=== PATIENT | female | born 1945 | race Caucasian/White ===

== ENCOUNTER 2024-03-20 15:37 | Observation (INO) | payer MEDICARE ==
--- NOTE | 2024-03-20 16:13 | ED ---
Neuro HPI - General Chief Complaint: Neuro Symptoms/Deficit Stated Complaint: Numbness Time Seen by Provider: 03/20/24 15:49 Source: patient, EMS, RN notes reviewed, old records reviewed Mode of arrival: EMS Limitations: no limitations - History of Present Illness Is the patient presenting with stroke symptoms?: No -: hour(s) Initial Comments: This is a 78-year-old female accepted in transfer for possibility of CVA patient's neurosymptoms are completely resolved and they resolved and route, patient has no history of prior CVA or heart disease. Location: speech (Patient with numbness lip numbness), dysarthria Place: home Improves With: time On Anticoagulants: No Associated Symptoms: denies other symptoms Treatments Prior to Arrival: none - Related Data Allergies/Adverse Reactions: Allergies Allergy/AdvReac Type Severity Reaction Status Date / Time adhesive tape AdvReac Rash/Hives Verified 03/20/24 16:01 erythromycin base AdvReac Rash/Hives Verified 03/20/24 16:01 naproxen AdvReac Rash/Hives Verified 03/20/24 16:01 nystatin AdvReac Rash/Hives Verified 03/20/24 16:01 zolpidem [From Ambien] AdvReac Rash/Hives Verified 03/20/24 16:01 Review of Systems ROS Statement: Those systems with pertinent positive or pertinent negative responses have been documented in the HPI. ROS Other: All systems not noted in ROS Statement are negative. General Exam Limitations: no limitations General appearance: alert, in no apparent distress Head exam: Present: atraumatic, normocephalic, normal inspection Eye exam: Present: normal appearance, PERRL, EOMI. Absent: scleral icterus, conjunctival injection, periorbital swelling ENT exam: Present: normal exam, mucous membranes moist Neck exam: Present: normal inspection. Absent: tenderness, meningismus, lymphadenopathy Respiratory exam: Present: normal lung sounds bilaterally. Absent: respiratory distress, wheezes, rales, rhonchi, stridor Cardiovascular Exam: Present: regular rate, normal rhythm, normal heart sounds. Absent: systolic murmur, diastolic murmur, rubs, gallop, clicks GI/Abdominal exam: Present: soft, normal bowel sounds. Absent: distended, tenderness, guarding, rebound, rigid Extremities exam: Present: normal inspection, full ROM, normal capillary refill. Absent: tenderness, pedal edema, joint swelling, calf tenderness Back exam: Present: normal inspection Neurological exam: Present: alert, oriented X3, CN II-XII intact Psychiatric exam: Present: normal affect, normal mood Skin exam: Present: warm, dry, intact, normal color. Absent: rash Stroke MDM - NIH Stroke Scale 1a. Level of Consciousness: (0) alert 1b. LOC Questions: (0) answers correctly 1c. LOC Commands: (0) performs tasks correctly 2. Best Gaze: (0) normal 3. Visual: (0) no visual loss 5a. Motor Arm Left: (0) no drift 5b. Motor Arm Right: (0) no drift 6a. Motor Leg Left: (0) no drift 6b. Motor Leg Right: (0) no drift 7. Limb Ataxia: (0) absent 8. Sensory: (0) normal 9. Best Language: (0) no aphasia 10. Dysarthria: (0) normal 11. Extinction/Inattention: (0) no abnormality - Medical Decision Making 78 female to ER with TIA as neuro symptoms are all resolved. Patient will admit for further neurologic evaluation - Radiology Data Radiology results: report reviewed (CT brain CT angio head neck negative for acute disease this is report from outside hospital), image reviewed - EKG Data -: EKG Interpreted by Me Past Medical History Past Medical History: Asthma History of Any Multi-Drug Resistant Organisms: None Reported Past Surgical History: Section Past Psychological History: No Psychological Hx Reported Smoking Status: Never smoker Past Alcohol Use History: None Reported Past Drug Use History: None Reported Course Vital Signs 03/20/24 15:54 Pulse Rate 78 Respiratory 18 Rate Blood Pressure 189/85 O2 Sat by Pulse 95 Oximetry - Reevaluation(s) Reevaluation #1: 03/20/24 16:11 Records reviewed Reevaluation #2: 03/20/24 16:11 Patient symptoms unchanged, remain resolved and states they have been improving during transfer Reevaluation #3: 03/20/24 16:12 Patient informed of results, questions answered, blood pressure remains elevated Reevaluation #4: Was pt. sent in by a medical professional or institution (, PA, BARBER, urgent care, hospital, or custodial...) When possible be specific @ -no Did you speak to anyone other than the patient for history (EMS, parent, family, police, friend...)? What history was obtained from this source @ -no Did you review nursing and triage notes (agree or disagree)? Why? @ -agree Are old charts reviewed (outside hosp., previous admission, EMS record, old EKG, old radiological studies, urgent care reports/EKG's, custodial records)? Report findings @ -yes Differential Diagnosis (chest pain, altered mental status, abdominal pain women, abdominal pain men, vaginal bleeding, weakness, fever, dyspnea, syncope, headache, dizziness, GI bleed, back pain, seizure, CVA, palpatations, mental health, musculoskeletal)? @ -prior EKG interpreted by me (3pts min.). @ -yes X-rays interpreted by me (1pt min.). @ -yes negative for acute disease CT interpreted by me (1pt min.). @ -no U/S interpreted by me (1pt. min.). @ -no What testing was considered but not performed or refused? (CT, X-rays, U/S, labs)? Why? @ -none What meds were considered but not given or refused? Why? @ -none Did you discuss the management of the patient with other professionals (professionals i.e. , PA, BARBER, lab, RT, psych nurse, social work nurse, pipe stress engineer, teacher, motorized squad commanding officer, nurse case manager)? Give summary @ -no Was smoking cessation discussed for >3mins.? @ -no Was critical care preformed (if so, how long)? @ -no Were there social determinants of health that impacted care today? How? (Homelessness, low income, unemployed, alcoholism, drug addiction, transportation, low edu. Level, literacy, decrease access to med. care, fpc, rehab)? @ -none Was there de-escalation of care discussed even if they declined (Discuss DNR or withdrawal of care, Hospice)? DNR status @ -no What co-morbidities impacted this encounter? (DM, HTN, Smoking, COPD, CAD, Cancer, CVA, ARF, Chemo, Hep., AIDS, mental health diagnosis, sleep apnea, morbid obesity)? @ -none Was patient admitted / discharged? Hospital course, mention meds given and route, prescriptions, significant lab abnormalities, going to OR and other pertinent info. @ - Undiagnosed new problem with uncertain prognosis? @ -no Drug Therapy requiring intensive monitoring for toxicity (Heparin, Nitro, Insulin, Cardizem)? @ -no Were any procedures done? @ -no Diagnosis/symptom? @ - Acute, or Chronic, or Acute on Chronic? @ -Acute Uncomplicated (without systemic symptoms) or Complicated (systemic symptoms)? @ -Complicated Side effects of treatment? @ -no Exacerbation, Progression, or Severe Exacerbation? @ -exacerbation Poses a threat to life or bodily function? How? (Chest pain, [place], [place], pneumonia, PE, COPD, DKA, ARF, appy, cholecystitis, CVA, Diverticulitis, Homicidal, Suicidal, threat to staff... and all critical care pts) @ -yes Reevaluation #5: Differential CVA Ischemic stroke, hemorrhagic stroke, brain tumor, atypical migraine, Wernicke's encephalopathy, seizure, multiple sclerosis, meningitis, encephalitis, hypoglycemia, Guillain-Bello, electrolytes disturbance, myasthenia gravis.... This is not meant to be an all-inclusive list - Consultations Consultation #1: With [facility] who agrees to admit this patient Disposition Clinical Impression: Transient cerebral ischemia Disposition: ADMITTED IP TO THIS HOSP Condition: Good Is patient prescribed a controlled substance at d/c from ED?: No Referrals: Jessica Medley DO [Primary Care Provider] - 1-2 days Time of Disposition: 16:00
[2024-03-20] MEDS: ASPIRIN 325 MG TAB PO STA (16:38)
--- NOTE | 2024-03-20 19:38 | US ---
EXAMINATION TYPE: US carotid duplex BILAT DATE OF EXAM: 03/20/2024 COMPARISON: NONE CLINICAL INDICATION: Female, 78 years old with history of Stenosis; Pt states let side tingling/numbn ess TECHNIQUE: Carotid duplex ultrasound examination. Indirect Doppler criteria was utilized. FINDINGS: EXAM MEASUREMENTS: RIGHT: Peak Systolic Velocity (PSV) cm/sec ----- Right CCA: 95.5 ----- Right ICA: 90.1 ----- Right ECA: 141 ICA/CCA ratio: 0.9 RIGHT: End Diastole cm/sec ----- Right CCA: 13.6 ----- Right ICA: 17.6 ----- Right ECA: 7.4 LEFT: Peak Systolic Velocity (PSV) cm/sec ----- Left CCA: 110 ----- Left ICA: 99.3 ----- Left ECA: 143 ICA/CCA ratio: 0.9 LEFT: End Diastole cm/sec ----- Left CCA: 16.1 ----- Left ICA: 20.1 ----- Left ECA: 6.6 VERTEBRALS (direction of flow): Right Vertebral: Antegrade Left Vertebral: Antegrade Rhythm: Normal [employer] NOTES: No significant stenosis seen IMPRESSION: Less than 50% stenosis of the bilateral carotid bifurcations. Criteria for Assigning % of Stenosis / Diameter reduction (Estimation based on the indirect measurements of the internal carotid artery velocities (ICA PSV). 1. Normal (no stenosis)=ICA PSV < 125 cm/s: ratio < 2.0: ICA EDV<40 cm/s. 2. Less than 50% stenosis=ICA PSV < 125 cm/s: ratio < 2.0: ICA EDV<40 cm/s. 3. 50 to 69% stenosis=ICA PSV of 125 to 230 cm/s: ration 2.0 ? 4.0: ICA EDV 40-100 cm/s. 4. Greater than 70% stenosis to near occlusion= ICA PSV > 230 cm/s: ratio > 4.0: ICA EDV > 100 cm/s. 5. Near occlusion= ICA PSV velocities may be low or undetectable: variable ratio and ICA EDV. 6. Total occlusion=unable to detect flow.
[2024-03-20] MEDS: ATORVASTATIN 80 MG TAB PO SCH (19:45)
[2024-03-20] MEDS: MELATONIN 5 MG TABLET PO PRN (22:36)
[2024-03-21] MEDS ORDERED: ARTIFICIAL TEARS-HYPROMELLOSE DROPS 15 ML BTL BOTH EYES PRN (09:24)
[2024-03-21] MEDS ORDERED: hydrALAZINE HCL 20 MG/ML 1 ML VIAL IVP PRN (09:26)
[2024-03-21] MEDS: ASPIRIN 325 MG TAB PO SCH (09:45)
[2024-03-21] MEDS: LORATADINE 10 MG TAB PO SCH (09:45)
[2024-03-21] MEDS: CHOLECALCIFEROL 125 MCG (5000 IU) TABLET PO SCH (09:45)
[2024-03-21 10:26] LABS: Chol/HDL Ratio 1.86 Ratio; LDL Cholesterol,Calculated 62.6 mg/dL (0.0-131.0); VLDL Calculation 16.88 mg/dL (5.00-40.00)
[2024-03-21] MEDS: ACETAMINOPHEN TAB 325 MG TAB PO PRN (10:33)
[2024-03-21] MEDS: FLUTICASONE NASAL 50MCG/SPRAY 16GM BTL EA NOSTRIL SCH (12:33)
[2024-03-21] MEDS: CLOPIDOGREL 75 MG TAB PO SCH (12:33)
--- NOTE | 2024-03-21 12:35 | P.CNNES ---
History of Present Illness Consult date: 03/21/24 Requesting physician: Aj Josue Reason for Consult: cva History of Present Illness: This is a 78-year-old woman who presented emergency department because of paresthesia over the left side of the lip mouth and left upper extremity. Patient stated that she woke up yesterday at 5:30 AM and was doing well and around 815 around that time she noticed that she is having paresthesia over the left upper lip left side of the tongue and left upper extremity. She feels her symptoms is improving but continues to have intermittent paresthesia of the left upper lip and continues to have paresthesia of the left tongue. Denies any weakness. She has chronic neck pain but denies any association of any numbness or tingling. Denies any history of stroke. Denies any high blood pressure but stated yesterday when her blood pressure was checked her blood pressure was elevated. Denies history of diabetes. She is not on any antiplatelet. Patient was taken to [facility] in which she had CT of the head is reported as mild small vessel disease. No evidence of acute intracranial process. She also had CT angiography of the head which is reported as no large vessel occlusion. No significant aneurysm. Dense atherosclerotic calcification in the vertebral artery causing more than 50% stenosis on the right side. Initial NIH stroke scale at the outside hospital was 0. Reviewed thrombolytic since outside hospital since NIH stroke scale was 0. Result the patient was transferred to our facility for further evaluation. The daughter is at bedside and she stated that patient is going under a lot of things recently dealing with her 's health issues recent mother's and her dealing with the Will. Some of the work-up during our facility consisted of: Lipid panel is triglyceride 84, cholesterol is 172, LDL 62 HDL is 92. Review of Systems The positive and negative as per HPI. Past Medical History Past Medical History: Asthma History of Any Multi-Drug Resistant Organisms: None Reported Past Surgical History: Section Past Psychological History: No Psychological Hx Reported Smoking Status: Never smoker Past Alcohol Use History: None Reported Past Drug Use History: None Reported Medications and Allergies Home Medications Medication Instructions Recorded Confirmed Type Ascorbic Acid [Vitamin C] 1,000 mg PO DAILY 03/20/24 03/20/24 History Budesonide/Formoterol Fumarate 2 puff INHALATION RT-BID 03/20/24 03/20/24 History [Symbicort 160-4.5 Mcg Inhaler] Cetirizine HCl [Zyrtec] 10 mg PO DAILY 03/20/24 03/20/24 History Cholecalciferol [Vitamin D3 (125 125 mcg PO DAILY 03/20/24 03/20/24 History Mcg = 5000 Iu)] Fluticasone Nasal [place] [Flonase 1 spray EA NOSTRIL BID 03/20/24 03/20/24 H istory Nasal [place]] Methylsulfonylmethane [MSM] 1,000 mg PO DAILY 03/20/24 03/20/24 History Montelukast [Singulair] 10 mg PO HS 03/20/24 03/20/24 History Prednisolone Acetate/Pf 1 drop BOTH EYES DAILY 03/20/24 03/20/24 History [Prednisolone Acet 1% Eye Drop] Systane Ultra Preservative Free 1 drop BOTH EYES QID PRN 03/20/24 03/20/24 History Zinc Gluconate [Zinc] 50 mg PO DAILY 03/20/24 03/20/24 History Allergies Allergy/AdvReac Type Severity Reaction Status Date / Time adhesive tape Allergy Rash/Hives Verified 03/20/24 16:36 erythromycin base Allergy Rash/Hives Verified 03/20/24 16:36 naproxen Allergy Rash/Hives Verified 03/20/24 16:36 nystatin Allergy Rash/Hives Verified 03/20/24 16:36 zolpidem [From Ambien] Allergy Rash/Hives Verified 03/20/24 16:36 Physical Examination - Vital Signs Vital Signs: Vital Signs Temp Pulse Pulse Resp BP BP Pulse Ox 03/21/24 09:26 95 03/21/24 08:00 16 03/21/24 07:00 97.5 F L 73 173/83 95 03/21/24 02:32 98.5 F 60 16 133/69 97 03/20/24 21:17 98.8 F 93 16 144/83 94 L 03/20/24 16:57 18 168/82 98 03/20/24 15:54 98.6 F 78 18 189/85 95 FiO2 03/21/24 09:26 21 03/21/24 08:00 03/21/24 07:00 03/21/24 02:32 03/20/24 21:17 03/20/24 16:57 03/20/24 15:54 Intake and Output 03/20/24 03/21/24 03/21/24 22:59 06:59 14:59 Other: Voiding Method Toilet Toilet Toilet # Voids 1 1 Weight 83.007 kg GENERAL: The patient is lying in bed and is not in acute distress. NEUROLOGICAL: Higher mental function: The patient is awake, alert, oriented to self, place and time. Patient is following commands. No aphasia and no neglect. Cranial nerves: The pupils are round, equal and reactive to light and accommodation. Visual conte are full to confrontation throughout. Extraocular movement is intact no nystagmus is noted. Facial sensation is normal to touch throughout. The facial strength is normal throughout. Hearing is normal bilaterally to hand rub. Tongue is midline and moved [id number] without any difficulty. No dysarthria is noted. Shoulder shrug is normal bilaterally. Motor: The strength is 5 over 5 throughout. Normal tone and bulk. Cerebellum: Normal finger to nose heel to mcmillan bilaterally. Sensation: Sensation is normal to touch throughout. Reflexes (right/left): 2+ throughout Plantars are downgoing bilaterally. Results - Laboratory Findings Abnormal Lab Findings: Abnormal Labs 03/21/24 05:53 HDL Cholesterol 92.50 H Assessment and Plan Assessment: This is a 78-year-old woman who yesterday in the morning she noticed that she had left paresthesia of the left upper lip left side of the mouth and left upper extremity and was evaluated at the outside hospital and had CT of the head which was unremarkable for acute process, CT angiography head reported as no large vessel occlusion. No significant aneurysm. Dense atherosclerotic calcification in the vertebral artery causing more than 50% stenosis on the right side. Her NIH stroke scale is 0 at outside hospital. As result was transferred for further evaluation. Acute left paresthesia involving facial region (upper lip that is intermittent), left lip and upper extremity: Probable acute ischemic stroke. I assume small lacunar stroke over right thalamus region. She is undergoing a lot of stress recently dealing with health issues and recent mother's and dealing with Will but I doubt stress is cause of her symptoms are more due to recent stroke. New onset hypertensive urgency Underlying history of chronic neck pain History of osteoarthritis History of corneal transplant in 2013 and is on prednisone eyedrops Plan: Was given aspirin 325 once in the ED then was started on aspirin 325 daily by the ED physician. I also started the patient on Plavix 75 mg daily. Patient was not on any antiplatelets prior to this. Patient started on Lipitor 80 mg nightly by the ED physician prior to that she was not on any statin. Recommend the LDL level for strokes to be less than 70. I ordered MRI of the brain, carotid duplex 2D echo was ordered and is pending Ordered TSH and HbA1c. Continue to neurochecks Cardiac monitoring PT, OT and PULPING MACHINE OPERATOR are consulted Will defer rest of the medical management the primary team. For DVT prophylaxis I start the patient on subcu heparin 5000 units every 12 hours Discussed with the patient and her family members who are bedside Thank you for the consultation Dr. Henson will resume neurology service tomorrow A.M. Time with Patient: Greater than 30
--- NOTE | 2024-03-21 12:53 | P.HPIM ---
History of Present Illness H&P Date: 03/21/24 History of present illness; patient 78-year-old lady with past medical his significant for COPD who presented as a transfer from [facility] for stroke workup. Patient initially presented to the hospital for left facial numbness and left upper extremity numbness. There was no complaint of slurred speech. Denies any weakness of any extremity. There was no complaint of loss of consciousness. No complaint of chest pain or shortness of breath. Patient had a CT head done which was negative for any acute intracranial process. Patient was transferred to [facility]. REVIEW OF SYSTEMS: CONSTITUTIONAL: No fever, no malaise, no fatigue. HEENT: No recent visual problems or hearing problems. Denied any sore throat. CARDIOVASCULAR: No chest pain, orthopnea, PND, no palpitations, no syncope. PULMONARY: No shortness of breath, no cough, no hemoptysis. GASTROINTESTINAL: No diarrhea, no nausea, no vomiting, no abdominal pain. NEUROLOGICAL: As mentioned above HEMATOLOGICAL: Denies any bleeding or petechiae. GENITOURINARY: Denies any burning micturition, frequency, or urgency. MUSCULOSKELETAL/RHEUMATOLOGICAL: Denies any joint pain, swelling, or any muscle pain. ENDOCRINE: Denies any polyuria or polydipsia. The rest of the 14-point review of systems is negative. PHYSICAL EXAMINATION: GENERAL: The patient is alert and oriented x3, not in any acute distress. Well developed, well nourished. HEENT: Pupils are round and equally reacting to light. EOMI. No scleral icterus. No conjunctival pallor. Normocephalic, atraumatic. No pharyngeal erythema. No thyromegaly. CARDIOVASCULAR: S1 and S2 present. No murmurs, rubs, or gallops. PULMONARY: Chest is clear to auscultation, no wheezing or crackles. ABDOMEN: Soft, nontender, nondistended, normoactive bowel sounds. No palpable organomegaly. MUSCULOSKELETAL: No joint swelling or deformity. EXTREMITIES: No cyanosis, clubbing, or pedal edema. NEUROLOGICAL: Gross neurological examination did not reveal any focal deficits. SKIN: No rashes. Assessment and plan TIA History of COPD Monitor vital signs Monitor CBC Monitor CMP Continue telemetry monitoring Continue neurochecks Results of ultrasound carotids noted Ordered 2D echo Ordered MRI brain As needed IV hydralazine Consult neurology Labs and medication were reviewed.. Continue same treatment. Continue with symptomatic treatment. Resume home medication. Monitor labs and vitals. DVT and GI prophylaxis. Further recommendations as per clinical course of the patient Dictation was produced using [email or web address] dictation software. please excuse any grammatical, word or spelling errors. Past Medical History Past Medical History: Asthma History of Any Multi-Drug Resistant Organisms: None Reported Past Surgical History: Section Past Psychological History: No Psychological Hx Reported Smoking Status: Never smoker Past Alcohol Use History: None Reported Past Drug Use History: None Reported Medications and Allergies Home Medications Medication Instructions Recorded Confirmed Type Ascorbic Acid [Vitamin C] 1,000 mg PO DAILY 03/20/24 03/20/24 History Budesonide/Formoterol Fumarate 2 puff INHALATION RT-BID 03/20/24 03/20/24 History [Symbicort 160-4.5 Mcg Inhaler] Cetirizine HCl [Zyrtec] 10 mg PO DAILY 03/20/24 03/20/24 History Cholecalciferol [Vitamin D3 (125 125 mcg PO DAILY 03/20/24 03/20/24 History Mcg = 5000 Iu)] Fluticasone Nasal [place] [Flonase 1 spray EA NOSTRIL BID 03/20/24 03/20/24 History Nasal [place]] Methylsulfonylmethane [MSM] 1,000 mg PO DAILY 03/20/24 03/20/24 History Montelukast [Singulair] 10 mg PO HS 03/20/24 03/20/24 History Prednisolone Acetate/Pf 1 drop BOTH EYES DAILY 03/20/24 03/20/24 History [Prednisolone Acet 1% Eye Drop] Systane Ultra Preservative Free 1 drop BOTH EYES QID PRN 03/20/24 03/20/24 History Zinc Gluconate [Zinc] 50 mg PO DAILY 03/20/24 03/20/24 History Allergies Allergy/AdvReac Type Severity Reaction Status Date / Time adhesive tape Allergy Rash/Hives Verified 03/20/24 16:36 erythromycin base Allergy Rash/Hives Verified 03/20/24 16:36 naproxen Allergy Rash/Hives Verified 03/20/24 16:36 nystatin Allergy Rash/Hives Verified 03/20/24 16:36 zolpidem [From Ambien] Allergy Rash/Hives Verified 03/20/24 16:36 Physical Exam Vitals: Vital Signs Temp Pulse Pulse Resp BP BP Pulse Ox 03/21/24 07:00 97.5 F L 73 173/83 95 03/21/24 02:32 98.5 F 60 16 133/69 97 03/20/24 21:17 98.8 F 93 16 144/83 94 L 03/20/24 16:57 18 168/82 98 03/20/24 15:54 98.6 F 78 18 189/85 95 Intake and Output 03/20/24 03/21/24 03/21/24 22:59 06:59 14:59 Other: Voiding Method Toilet Toilet # Voids 1 1 Weight 83.007 kg Thrombosis Risk Factor Assmnt - Choose All That Apply Each Risk Factor Represents 3 Points: Age 75 years or older Thrombosis Risk Factor Assessment Total Risk Factor Score: 3 Thrombosis Risk Factor Assessment Level: Moderate Risk
[2024-03-21] MEDS: SYSTANE LUBRICANT EYE DROPS BOTH EYES PRN (20:41)
[2024-03-21] MEDS: MONTELUKAST 10 MG TAB PO SCH (20:41)
[2024-03-21] MEDS: HEPARIN SODIUM,PORCINE 5,000 UNIT/ML 1 ML VIAL SQ SCH (20:41)
[2024-03-21] MEDS: SYMBICORT 160-4.5 MCG INHALER INHALATION SCH (20:55)
[2024-03-22] MEDS: ZINC SULFATE 220 MG CAP PO SCH (09:00)
[2024-03-22] MEDS: METHYLSULFONYLMETHANE 1000 MG PO SCH (09:02)
[2024-03-22] MEDS: PREDNISOLONE ACETATE 1% BOTH EYES SCH (11:19)
[2024-03-22] MEDS: METHYLSULFONYLMETHANE PO SCH ×2 (11:20→11:33)
[2024-03-22] MEDS: prednisoLONE ACETATE 1% OPHTH DROPS 5 ML BTL BOTH EYES SCH (11:33)
--- NOTE | 2024-03-22 15:31 | P.PN ---
Subjective Progress Note Date: 03/22/24 Patient was initially seen by Dr. Miguel Copeland. Please refer to his note for details. Patient is a 78-year-old female with paresthesias with left arm and lip/mouth involvement. Patient was seen for a follow-up. Patient's was also present. Patient has presented with paresthesias over some parts of left side of the body, including left upper and lower lip, dorsum of the left side of the tongue (almost like a straight line), and cold spot involving dorsum of the forearm straight down from elbow to the wrist. Patient states that yesterday it was more tingling but today is more numb. She cannot describe the feeling. Denies any slurred speech or any focal weakness. She denies any diabetes, only has asthma. Objective - Vital Signs Vital signs: Vital Signs Temp 98.1 F 03/22/24 07:00 Pulse 80 03/22/24 07:00 Resp 18 03/22/24 08:32 BP 174/92 03/22/24 07:00 Pulse Ox 93 L 03/22/24 07:00 FiO2 21 03/21/24 09:26 Intake & Output 03/21/24 03/22/24 03/22/24 18:59 06:59 18:59 Intake Total 358 250 Balance 358 250 Intake: Oral 358 250 Other: Voiding Method Toilet Toilet Toilet # Voids 1 3 - Exam Patient's mental status, speech and language functions are normal. Muscle strength testing there is no pronator drift and the strength is normal in arms and legs. Face is symmetric, tongue protrudes midline. Visual conte are full. Sensory to touch is equal. No ataxia. Assessment and Plan Assessment: This is a 78-year-old woman who yesterday in the morning she noticed that she had left paresthesia of the left upper lip left side of the mouth and left upper extremity and was evaluated at the outside hospital and had CT of the head which was unremarkable for acute process, CT angiography head reported as no large vessel occlusion. No significant aneurysm. Dense atherosclerotic calcification in the vertebral artery causing more than 50% stenosis on the right side. Her NIH stroke scale is 0 at outside hospital. As result was transferred for further evaluation. Acute left paresthesia involving left upper and lower lip, left dorsum of the tongue and left upper extremity: Rule out acute lacunar ischemic stroke. She is undergoing a lot of stress recently dealing with health issues and recent mother's and dealing with Will but I doubt stress is cause of her symptoms are more due to recent stroke. New onset hypertensive urgency Underlying history of chronic neck pain History of osteoarthritis History of corneal transplant in 2013 and is on prednisone eyedrops Plan: Was given aspirin 325 once in the ED then was started on aspirin 325 daily by the ED physician. Dr. Copeland also started the patient on Plavix 75 mg daily. Patient was not on any antiplatelets prior to this. Patient started on Lipitor 80 mg nightly by the ED physician prior to that she was not on any statin. Recommend the LDL level for strokes to be less than 70. Await MRI of the brain Lipid panel is triglyceride 84, cholesterol is 172, LDL 62 HDL is 92. Continue Lipitor. Carotid Doppler revealed less than 50% stenosis of bilateral ICA bifurcations. Antegrade flow in both vertebral arteries. 2D echo is pending TSH normal 0.716 and HbA1c 5.6. Permissive hypertension for 24 to 48 hours. Continue to neurochecks Cardiac monitoring PT, OT and AUTOMATIC OPERATOR are consulted Will defer rest of the medical management the primary team. For DVT prophylaxis, patient on subcu heparin 5000 units every 12 hours
--- NOTE | 2024-03-23 11:43 | CA ---
Transthoracic Echo Report Name: Nelida Carvajal Age: 78 Gender: F : 1945 Exam Date: 03/22/2024 16:23 Exam Location: [facility] Ht (in): 64 Wt (lb): 183 Ordering Physician: Aj Josue DO Attending/Referring Phys: [id number], Joselo Program Scheduler Laure Rojas RDCS Procedure CPT: Indications: Thrombus Cardiac Hx: Technical Quality: Fair Contrast 1: Total Dose (mL): Contrast 2: Total Dose (mL): MEASUREMENTS (Male / Female) Normal Values 2D ECHO LV Diastolic Diameter PLAX 3.3 cm 4.2 - 5.9 / 3.9 - 5.3 cm LV Systolic Diameter PLAX 1.8 cm IVS Diastolic Thickness 1.7 cm 0.6 - 1.0 / 0.6 - 0.9 cm LVPW Diastolic Thickness 1.5 cm 0.6 - 1.0 / 0.6 - 0.9 cm LV Relative Wall Thickness 1.0 RV Internal Dim ED PLAX 3.0 cm LA Volume 55.6 cm??? 18 - 58 / 22 - 52 cm??? LA Volume Index 28.3 cm???/m??? 16 - 28 cm???/m??? M-MODE Aortic Root Diameter MM 2.7 cm LA Systolic Diameter MM 3.8 cm LA Ao Ratio MM 1.4 AV Cusp Separation MM 2.0 cm DOPPLER AV Peak Velocity 102.9 cm/s AV Peak Gradient 4.2 mmHg AV Mean Velocity 70.0 cm/s AV Mean Gradient 2.2 mmHg AV Velocity Time Integral 18.1 cm LVOT Peak Velocity 93.8 cm/s LVOT Peak Gradient 3.5 mmHg LVOT Velocity Time Integral 15.8 cm MV Area PHT 3.5 cm??? Mitral E Point Velocity 54.6 cm/s Mitral A Point Velocity 100.6 cm/s Mitral E to A Ratio 0.5 MV Deceleration Time 218.0 ms MV E' Velocity 6.3 cm/s Mitral E to MV E' Ratio 8.7 TR Peak Velocity 212.1 cm/s TR Peak Gradient 18.0 mmHg Right Ventricular Systolic Press 21.6 mmHg FINDINGS Left Ventricle Moderately increased left ventricular wall thickness. Left ventricular cavity size normal. Normal left ventricular systolic function with no obvious regional wall motion abnormalities. Left ventricular ejection fraction is estimated at 55-60 %. Grade 1 diastolic dysfunction. Right Ventricle Normal right ventricular size and function. Right ventricular systolic pressure within normal limits. Right Atrium Normal right atrial size. Left Atrium Mildly increased left atrial volume. Mildly increased left atrial area. Mitral Valve Structurally normal mitral valve. Mild mitral annular calcification. Trace mitral regurgitation. Aortic Valve Trileaflet aortic valve. Thickened aortic valve without stenosis. No aortic regurgitation. Tricuspid Valve Structurally normal tricuspid valve. Mild tricuspid regurgitation. Pulmonic Valve Structurally normal pulmonic valve. Trace pulmonic regurgitation. Pericardium No pericardial effusion. Aorta Normal size aortic root and proximal ascending aorta. CONCLUSIONS Left ventricular ejection fraction 55-60% Moderately increased left ventricle thickness RVSP 21 Mildly dilated left atrium Trace mitral regurgitation Mild tricuspid regurgitation Previewed by: Dr. Ben Abel DO (Electronically Signed) Final Date: 23 March 2024 11:42
[2024-03-23 14:43] VITALS: BP 143/75; PULSE 97; RESP 14; TEMP 98
--- NOTE | 2024-03-23 15:04 | MR ---
EXAMINATION TYPE: MR brain wo con DATE OF EXAM: 03/23/2024 COMPARISON: None HISTORY: Left side paresthesia, evaluate for stroke/TIA. CONTRAST: Performed utilizing 0 mL intravenous Gadavist gadolinium contrast. TECHNIQUE: Multiplanar, multiecho imaging on a 3.0 Bernice magnet is performed through the brain. Stud y is performed within 24 hours of arrival to the hospital. The craniovertebral junction is normal. The pituitary is normal. Diffusion-weighted imaging is performed. Tiny asymmetric hyperintensity may be within the right thal amus on the diffusion-weighted imaging. Punctate smaller area may be present on the inversion recover y weighted sequence. Tiny ischemic change at this level is not entirely excluded. No additional areas of suspicious hyperintensity on diffusion to suggest acute ischemic change. There are scattered punctate areas of hyperintensity on T2 and Inversion Recovery weighted sequences which are non-specific but can be related to microvascular ischemic changes. Larger area measures 0.6 cm The left insula. White matter changes are seen. Ventricular white matter centrum semiovale and short radiata. Rounded. 0.4 cm in the anterior left short radiata. Centrum semiovale white matter changes are present. Ventricles and sulci are appropriate for the patient age. IMPRESSION: 1. Chronic appearing periventricular deep white matter changes likely on the basis of chronic white m atter ischemic change. 2. Punctate solitary hyperintensity on diffusion within the right thalamus. Acute ischemic change at this level is not excluded. 3. No additional areas suspicious for acute ischemic change.
--- NOTE | 2024-03-23 17:15 | P.PN ---
Subjective Progress Note Date: 03/23/24 03/23/2024: Patient was seen in follow-up. Patient states that numbness of the left side of the lips has remarkably improved. The left dorsum of the tongue feels like "bruised". The numbness of the left dorsal forearm has also improved only 1 spot left. No weakness, no other symptoms. 03/22/2024: Patient was initially seen by Dr. Miguel Copeland. Please refer to his note for details. Patient is a 78-year-old female with paresthesias with left arm and lip/mouth involvement. Patient was seen for a follow-up. Patient's was also present. Patient has presented with paresthesias over some parts of left side of the body, including left upper and lower lip, dorsum of the left side of the tongue (almost like a straight line), and cold spot involving dorsum of the forearm straight down from elbow to the wrist. Patient states that yesterday it was more tingling but today is more numb. She cannot describe the feeling. Denies any slurred speech or any focal weakness. She denies any diabetes, only has asthma. Objective - Vital Signs Vital signs: Vital Signs Temp 98.0 F 03/23/24 14:42 Pulse 97 03/23/24 14:42 Resp 14 03/23/24 14:42 BP 143/75 03/23/24 14:42 Pulse Ox 95 03/23/24 14:42 FiO2 21 03/21/24 09:26 Intake & Output 03/22/24 03/23/24 03/23/24 18:59 06:59 18:59 Intake Total 486 476 Balance 486 476 Intake: Oral 486 476 Other: Voiding Method Toilet Toilet # Voids 4 2 1 - Exam Patient's mental status, speech and language functions are normal. Muscle strength testing there is no pronator drift and the strength is normal in arms and legs. Face is symmetric, tongue protrudes midline. Visual conte are full. Sensory to touch is equal. No ataxia. Assessment and Plan Assessment: * Acute, tiny right thalamic lacunar ischemic infarction, presenting with paresthesia involving left upper and lower lip, left dorsum of the tongue and left upper extremity * New onset hypertensive urgency * Underlying history of chronic neck pain * History of osteoarthritis * History of corneal transplant in 2013 and is on prednisone eyedrops Plan: MRI of the brain revealed punctate solitary hyperintensity on diffusion weighted images within the right thalamus. Acute ischemic change at this level is not excluded. Otherwise chronic appearing periventricular deep white matter changes likely on the basis of chronic white matter ischemic change. I personally reviewed MRI, and agree with evidence of acute tiny ischemic infarction in the right thalamus. 2D echo revealed left ventricular EF 55 to 60%. Moderately increased left ventricular wall thickness. Mildly dilated left atrium. No significant valvular abnormalities. Lipid panel is triglyceride 84, cholesterol is 172, LDL 62 HDL is 92. Continue Lipitor 40 mg (new medication). Carotid Doppler revealed less than 50% stenosis of bilateral ICA bifurcations. Antegrade flow in both vertebral arteries. TSH normal 0.716 and HbA1c 5.6. Gradually optimize blood pressure to normotensive level. Patient need to closely follow-up with her primary physician as well. Patient was not on any antiplatelets prior to this. Recommend patient continue dual antiplatelet therapy with aspirin 81 mg and Plavix 75 mg for 21 days, then stop Plavix and continue aspirin 81 mg indefinitely. Cardiac monitoring Neurologically clear for discharge. Recommend follow-up with neurologist in 1 to 2 weeks.
== END 2024-03-23 18:23 | disposition home or self-care (01) ==
LOC: EC 15:37 → 6NMEDSUR 16:07
PROVIDERS: ADMIT Hospitalist; ATTEND Hospitalist
DX: I63.81 Other cerebral infarction due to occlusion or stenosis of small artery (principal); J45.909 Unspecified asthma, uncomplicated; J44.89 Other specified chronic obstructive pulmonary disease; Z79.51 Long term (current) use of inhaled steroids; Z79.899 Other long term (current) drug therapy; Z94.7 Corneal transplant status; I16.0 Hypertensive urgency; G89.29 Other chronic pain
CPT/HCPCS: 96372 ×3; 99285; 94640 ×4; 94760; 93306; 97161; 80061; 84443; 83036; 93880; 70551; G0378 ×4; J1644 ×2

== ENCOUNTER → 2024-11-08 | Outpatient (CLI) | payer MEDICARE ==
[2024-11-08 12:18] LABS: Partial Thromboplastin Time 22.1 sec (22.0-30.0); Prothrombin Time 10.9 sec (10.0-12.5)
[2024-11-08 15:01] LABS: HGB 12.8 g/dL (12.0-15.0); MCH 29.2 pg (27.0-32.0); MCV 91.1 FL (80.0-97.0); Mean Platelet Volume 9.7 FL (9.5-12.2); NRBC Per 100 WBC 0 X 10*3/uL (0.00-0.01); Platelet Count 328 X 10*3/uL (140-440); RBC 4.39 X 10*6/uL (4.10-5.20); RDW 14.8 % (11.5-14.5); WBC 7.91 X 10*3/uL (4.50-10.00)
[2024-11-08 15:27] LABS: ALT 24 U/L (8-44); AST 21 U/L (13-35); Albumin 4.2 g/dL (3.8-4.9); Albumin/Globulin Ratio 1.56 Ratio (1.60-3.17); Alkaline Phosphatase 98 U/L (41-126); BUN/Creat Ratio 36.83 Ratio (12.00-20.00); Blood Urea Nitrogen 22.1 mg/dL (9.0-27.0); Calcium 9.9 mg/dL (8.7-10.3); Carbon Dioxide 27.5 mmol/L (21.6-31.8); Chloride 102 mmol/L (96-109); Globulin 2.7 g/dL (1.6-3.3); Glucose 99 mg/dL (70-110); Potassium 4.5 mmol/L (3.5-5.5); Sodium 138 mmol/L (135-145); Total Bilirubin 0.5 mg/dL (0.3-1.2); Total Protein 6.9 g/dL (6.2-8.2)
== END | disposition home or self-care (01) ==
LOC: LABWHC1 11:17
PROVIDERS: ATTEND Orthopaedic Surgery
DX: Z01.812 Encounter for preprocedural laboratory examination (principal); M16.11 Unilateral primary osteoarthritis, right hip; Z22.322 Carrier or suspected carrier of Methicillin resistant Staphylococcus aureus
CPT/HCPCS: 36415; 80053; 85027; 85610; 85730; 86850; 86900; 86901; 87070

== ENCOUNTER 2024-11-16 06:35 | Day surgery (SDC) | payer MEDICARE ==
[2024-11-10 15:56] VITALS: BMI 31.2
[~2024-11-16 06:35] MED LIST: TRANEXAMIC 1,000 MG/100ML-NACL 1,000 MG in SALINE 1 100ML.BAG IVPB PRN
[2024-11-16] MEDS: LIDOCAINE 1% (10MG/ML) FOR IV START INTRADERMA PRN (06:53)
[2024-11-16] MEDS ORDERED: HYDROmorphone 0.5 MG/0.5 ML SYRINGE IVP PRN ×4 (07:00→10:16)
[2024-11-16] MEDS: MELOXICAM 7.5 MG TAB PO PRN (07:24)
[2024-11-16] MEDS: ACETAMINOPHEN TAB 500 MG TAB PO PRN (07:24)
[2024-11-16] MEDS: GABAPENTIN 300 MG CAP PO PRN (07:24)
[2024-11-16] MEDS: IV FLUID CONTINUATION 1,000 ML IV ONE ×2 (07:43→09:56)
[2024-11-16] MEDS: DEXAMETHASONE SOD PHOSPHATE 4 MG/ML 1 ML VIAL IV ONE (07:49)
[2024-11-16] MEDS: LACTATED RINGERS 1,000 ML IV SCH (07:49)
[2024-11-16] MEDS: ONDANSETRON 4 MG/2 ML VIAL IVP ONE (07:49)
[2024-11-16] MEDS ORDERED: MIDAZOLAM 2 MG/2 ML VIAL ONE (08:33)
[2024-11-16] MEDS ORDERED: ROPIVACAINE 5 MG/ML 30 ML VIAL ONE (08:33)
[2024-11-16] MEDS ORDERED: fentaNYL (PF) 50 MCG/ML 2 ML AMP ONE (08:33)
[2024-11-16] MEDS ORDERED: DEXAMETHASONE SOD PHOSPHATE 4 MG/ML 1 ML VIAL ONE (08:33)
[2024-11-16] MEDS ORDERED: TRANEXAMIC 1,000 MG/100ML-NACL PREMIX BAG ONE (08:33)
--- NOTE | 2024-11-16 08:33 | P.ANPRN ---
Procedure Note - Anesthesia - Nerve Block Performed Right Teddy Single Time Out Performed: Yes Date of Procedure: 11/16/24 Procedure Start Time: 08:18 Procedure Stop Time: :22 Location of Patient: PreOp Indication: Acute Post-Operative Pain, Requested by Surgeon Sedation Type: Sedate with meaningful contact maintained Preparation: Sterile Prep Position: Supine Needle Types: Pajunk Needle Gauge: 21 Ultrasound used to visualize needle placement: Yes Ultrasound used to observe medication spread: Yes Injectate: 0.5% Ropivacaine (see comment for volume) (30 mL +4 mg dexamethasone) Blood Aspirated: No Pain Paresthesia on Injection Noted: No Resistance on Injection: Normal Image Stored and Saved: Yes Events: Uneventful and Well Tolerated
[2024-11-16] MEDS: MIDAZOLAM 2 MG/2 ML VIAL IV PRN (08:41)
[2024-11-16] MEDS: fentaNYL (PF) 50 MCG/ML 2 ML AMP IVP PRN (08:42)
[2024-11-16] MEDS: ROPIVACAINE 5 MG/ML 30 ML VIAL MISCELLANE ONE ×2 (09:04→09:40)
--- NOTE | 2024-11-16 09:48 | P.OP ---
Date of Procedure: 11/16/24 Preoperative Diagnosis: Severe osteoarthritis right hip Postoperative Diagnosis: Severe osteoarthritis, right hip Procedure(s) Performed: Right total hip arthroplasty with a direct anterior approach Implants: [employer] Polarstem standard size 2 with a collar [employer] R3, 3 hole hemispherical acetabular shell, 50 mm [employer] Reflection 6.5 mm cancellus screws, 20 mm 2 [employer] R3, XLPE 20 acetabular liner [employer] Oxinium femoral head 36 mm, +4 All components were press-fit. The articulation is Oxinium on polyethylene. Anesthesia: spinal Surgeon: Michael Whitten Form Setter #1: Mary Marrufo Estimated Blood Loss (ml): 200 Pathology: none sent Condition: stable Disposition: PACU Indications for Procedure: After failure of conservative treatment we discussed the surgical and non surgical treatment options at length. Patient wishes to proceed with a total hip arthroplasty with a direct anterior approach. Complications specific to this procedure were discussed at length, including but not limited to infection, leg length discrepancy, dislocation, nerve injury, and fracture. Covid-19 was also discussed at length with the patient, and they are aware of the current policies and procedures. The patient was given the option of delaying surgery, but they elect to proceed knowing these risks. Patient is aware of all these complications and informed consent was obtained Operative Findings: The operative findings are consistent with severe osteoarthritis of the right hip Description of Procedure: The patient was seen and evaluated in the preoperative area and the consent was reviewed. The operative site was marked with a skin marker. The patient verified the procedure and operative site. A YAN block was placed by anesthesia in the preoperative area. The patient was then brought to the operating room and given preoperative antibiotics intravenously. 1 g of Tranexamic acid was also given intravenously. A spinal anesthetic was administered by the anesthesia department. The patient was then placed on the Foley table with the bony prominences well-padded. The hip area was then prepped with a ChloraPrep solution and draped in the usual sterile fashion. A universal timeout was then performed, which confirmed the patient's name, surgical site, ALLERGIES, and procedure being performed on the consent. Next the incision site was located at 1 cm distal and 4 cm lateral to the anterior superior iliac spine. The skin and subcutaneous tissues were sharply incised. Incision was carefully dissected down to the fascia overlying the tensor fascia darrick muscle. This fascia was then incised in line with the muscle fibers. Care was taken to stay laterally in order to avoid injuring the lateral femoral cutaneous nerve. Next, using blunt finger dissection, the tensor fascia darrick muscle was dissected off its investing fascia. The muscle was then carefully retracted laterally with a cobra retractor over the lateral neck of the femur. Next, the circumflex vessels were identified and cauterized using the Aquamantis device. The anterior hip capsule was then exposed. The capsule was then opened and an inverted T fashion. The retractors were then placed intracapsularly. The retractors were maintained intracapsular throughout the procedure. The proximal femur was then visualized. Fluoroscopic x-rays were then taken in order to evaluate the preoperative leg lengths. A small amount of traction was placed on the leg. The femoral neck was then osteotomized at the appropriate level above the lesser trochanter. A small wedge of bone was then removed from the remaining femoral head. Next, using a corkscrew the femoral head was removed from the acetabulum. On gross visual inspection, the femoral head had complete loss of articular cartilage and multiple periarticular osteophytes. The femoral head was then measured. Attention was then turned to the acetabulum. The acetabulum was exposed and any remaining labrum was excised. Sequential reaming of the acetabulum was performed using fluoroscopic guidance until there was a good bed of bleeding cancellus bone. When the appropriate size was reached, a trial was then placed. The position and fit of the trial was checked with fluoroscopy. The trial was then removed. Then, using fluoroscopic guidance, the final implant was impacted at 20 of anteversion and 40 of abduction, and fully seated in the acetabulum. 2 screws were then placed in the acetabulum. Again fluoroscopy was used to check position of the screws. Next, the liner was then impacted, with a 20 elevated liner located in the anterior superior quadrant. Component locking was confirmed. Attention was then directed to the femur. With the aid of the Foley table, the femur was externally rotated to approximately 130, extended, and adducted under the opposite leg. A side hook was then placed under the proximal femur, and the side hook elevator was used to elevate the proximal femur while releasing the capsule. Retractors were then placed. A capsular release was performed, as well as a release of the conjoined tendon, which afforded excellent visualization of the proximal femur. Next, a box osteotome was used to lateralize the proximal femur. A mail handlers supervisor was then used to locate the femoral canal. Sequential broaching was then performed with appropriate size which afforded excellent fixation in the proximal femur. A trial was then placed with appropriate head and neck, and the hip was gently reduced with the aid of the Foley table. Fluoroscopy was then used to check position of the components, as well as to evaluate the leg lengths and offset. The leg lengths and offset were measured as closely as possible to ensure stability of the hip. The hip was then gently dislocated and the trials were then removed. Final implants were then impacted and the hip was again reduced. Final fluoroscopic x-rays confirmed that the components were in anatomic position. The leg lengths and offset were measured and were found to coincide with the trial measurements. The hip was also taken through range of motion, and found to be stable. The hip was then copiously irrigated with antibiotic solution with pulsatile lavage. The hip was then irrigated with Irrisept solution. The soft tissues were then injected with a ropivacaine solution. A second dose of 1 g of Tranexamic acid was also given intravenously. The fascia was then closed with 2-0 strata fix suture. The subcutaneous tissue was closed with 3-0 Vicryl. The subcuticular tissue was closed with 3-0 moncryl suture. The skin was then closed with Exofin skin glue. After the glue and dried, and Optifoam silver impregnated dressing was applied. The patient was th en transferred to the recovery room in stable condition. The admissions assistant SOMMER Roberts was required due to the complexity of surgery, and the need for skilled investigative assistant for positioning, draping, exposure, retraction, and closure of the wound.
[2024-11-16] MEDS ORDERED: ONDANSETRON 4 MG/2 ML VIAL IVP PRN (10:16)
[2024-11-16] MEDS ORDERED: MAGNESIUM HYDROXIDE 2,400 MG/30 ML CUP PO PRN (10:16)
[2024-11-16] MEDS ORDERED: NALOXONE 0.4 MG/ML 1 ML VIAL IV PRN (10:16)
--- NOTE | 2024-11-16 10:47 | FL ---
EXAMINATION TYPE: FL guidance operating room, XR Hip Limited RT DATE OF EXAM: 11/16/2024 10:39 AM COMPARISON: Pre Operative Images if available both CT/MRI or plain film CLINICAL INDICATION: Female, 79 years old with history of Rt Hip-Ant; TECHNIQUE: FL guidance operating room, XR Hip Limited RT, multiple fluoroscopic images provided for p rocedure. DAP: 1.8195 mGym2 Gycm2 uGym2 cGycm2 or equivalent. FINDINGS: Fluoroscopic images during internal fixation/arthroplasty demonstrate hardware in appropriate positio n. Hardware appears intact. No immediate complication identified. IMPRESSION: 1. No evidence for intraoperative complication. 2. Please see the operative/procedural note for further details. [facility], , 11/16/2024 10:45 AM
--- NOTE | 2024-11-16 10:48 | XR ---
EXAMINATION TYPE: XR Hip Limited RT DATE OF EXAM: 11/16/2024 10:37 AM COMPARISON: None CLINICAL INDICATION: Female, 79 years old with history of Status post hip surgery, assess surgical al ignment; PHH, pain TECHNIQUE: XR Hip Limited RT; Frontal view FINDINGS: Post arthroplasty changes, hardware is intact, alignment is appropriate. No evidence of fra cture. Postoperative changes of the soft tissues with subcutaneous gas. No evidence of any acute osse ous pathology or joint dislocation. IMPRESSION: Hip arthroplasty with hardware intact and in appropriate alignment. No acute fracture. [facility], , 11/16/2024 10:46 AM
[2024-11-16] MEDS: SODIUM CHLORIDE 0.9% 1,000 ML IV SCH (12:52)
[2024-11-16] MEDS: HYDROcodone/APAP 7.5-325MG 1 EACH TAB PO PRN (15:38)
[2024-11-16] MEDS ORDERED: METHYLSULFONYLMETHANE 1000 MG PO SCH (21:00)
[2024-11-16] MEDS: SENNOSIDES-DOCUSATE SODIUM 1 EACH TAB PO SCH (21:02)
[2024-11-16] MEDS: ASPIRIN 325 MG TAB PO SCH (21:02)
[2024-11-16] MEDS: MONTELUKAST 10 MG TAB PO SCH (21:03)
[2024-11-16] MEDS: MELATONIN 3 MG TABLET PO SCH (21:03)
[2024-11-16] MEDS: FLUTICASONE NASAL 50MCG/SPRAY 16GM BTL EA NOSTRIL SCH (22:50)
[2024-11-16] MEDS: ATORVASTATIN 40 MG TAB PO SCH (23:46)
[2024-11-17] MEDS: HYDROcodone/APAP 7.5-325MG 1 EACH TAB PO PRN (05:47)
[2024-11-17 07:21] VITALS: BP 153/71; PULSE 79; RESP 18; TEMP 98.9
--- NOTE | 2024-11-17 07:51 | P.DS ---
Providers Expected date of discharge: 11/17/24 Attending physician: Michael Whitten Consults: 11/16/24 10:16 Consult Physician Routine Consulting Provider: Richard Lipscomb Consult Reason/Comments: medical management Do you want consulting provider notified?: Yes Primary care physician: Jessica Medley, DO - Discharge Diagnosis(es) (1) Primary osteoarthritis of right hip Current Visit: Yes Status: Acute (2) Status post total hip replacement, right Current Visit: Yes Status: Acute Hospital Course: This is a 79-year-old female with known history of degenerative arthritis of the right hip. The patient presents for evaluation. After discussion and consideration patient elects to proceed with total hip arthroplasty with direct anterior approach. The patient is seen preoperatively by primary care physician and cleared for surgery. Patient is admitted to [facility] on 11/16/2024 for total hip arthroplasty with direct anterior approach. The procedure is performed without complication or sequelae. The patient is doing well postoperatively. Labs and vital signs are stable on day of discharge. On day of discharge patient's hip incision is healing well. There is minimal erythema. There is no drainage noted at this time. There is minimal soft tissue swelling to the hip and thigh. Patient has full foot and ankle motion without difficulty or pain. Neurovascular status to the lower extremity is intact. Patient is discharged to home in good condition. Please see med rec for accurate list of home medications. Plan - Discharge Summary Discharge Rx Participant: Yes New Discharge Prescriptions: New Aspirin 325 mg PO BID #60 tab HYDROcodone/APAP 7.5-325MG [[place]ouse 7.5-325] 1 - 2 tab PO Q6H PRN #32 tab PRN Reason: Pain Sennosides [Senokot] 2 tab PO DAILY PRN #60 tablet PRN Reason: Constipation No Action Zinc Gluconate [Zinc] 50 mg PO DAILY Methylsulfonylmethane [MSM] 7,000 mg PO BID Cholecalciferol [Vitamin D3 (125 Mcg = 5000 Iu)] 125 mcg PO DAILY Prednisolone Acetate/Pf [Prednisolone Acet 1% Eye Drop] 1 drop BOTH EYES DAILY Montelukast [Singulair] 10 mg PO HS Systane Ultra Preservative Free 1 drop BOTH EYES QID PRN PRN Reason: dry eyes Aspirin 81 mg PO DAILY #30 tab Metoprolol Tartrate 25 mg PO QAM Melatonin 3 mg PO HS Ascorbic Acid [Vitamin C] 1,000 mg PO DAILY Acetaminophen Tab [Tylenol] 650 mg PO Q4-6H PRN PRN Reason: Pain Cetirizine HCl [Zyrtec] 10 mg PO DAILY Fluticasone Nasal [place] [Flonase Nasal [place]] 1 spray EA NOSTRIL BID Budesonide/Formoterol Fumarate [Symbicort 160-4.5 Mcg Inhaler] 2 puff INHALATION RT-BID Atorvastatin [Lipitor] 40 mg PO HS #30 tablet Losartan [Cozaar] 25 mg PO DAILY Selenium 100 mcg PO QAM Melatonin/Magnesium Citrate [Slowmag mg Calm-Sleep Tablet] 1 tab PO HS Losartan [Cozaar] 50 mg PO QAM Calcium 26/Vit D3/Magnesium 15 [Wwfssoq-Nkb-Q1 Complx 167Mg Cp] 1 cap PO QAM Discharge Medication List Budesonide/Formoterol Fumarate [Symbicort 160-4.5 Mcg Inhaler] 2 puff INHALATION RT-BID 03/20/24 [History] Cetirizine HCl [Zyrtec] 10 mg PO DAILY 03/20/24 [History] Cholecalciferol [Vitamin D3 (125 Mcg = 5000 Iu)] 125 mcg PO DAILY 03/20/24 [History] Fluticasone Nasal [place] [Flonase Nasal [place]] 1 spray EA NOSTRIL BID 03/20/24 [History] Methylsulfonylmethane [MSM] 7,000 mg PO BID 03/20/24 [History] Montelukast [Singulair] 10 mg PO HS 03/20/24 [History] Prednisolone Acetate/Pf [Prednisolone Acet 1% Eye Drop] 1 drop BOTH EYES DAILY 03/20/24 [History] Systane Ultra Preservative Free 1 drop BOTH EYES QID PRN 03/20/24 [History] Zinc Gluconate [Zinc] 50 mg PO DAILY 03/20/24 [History] Aspirin 81 mg PO DAILY #30 tab 03/23/24 [Rx] Atorvastatin [Lipitor] 40 mg PO HS #30 tablet 03/23/24 [Rx] Ascorbic Acid [Vitamin C] 1,000 mg PO DAILY 11/10/24 [History] Calcium 26/Vit D3/Magnesium 15 [Atsekap-Mar-W1 Complx 167Mg Cp] 1 cap PO QAM 11/10/24 [History] Losartan [Cozaar] 25 mg PO DAILY 11/10/24 [History] Losartan [Cozaar] 50 mg PO QAM 11/10/24 [History] Melatonin 3 mg PO HS 11/10/24 [History] Melatonin/Magnesium Citrate [Slowmag mg Calm-Sleep Tablet] 1 tab PO HS 11/10/24 [History] Metoprolol Tartrate 25 mg PO QAM 11/10/24 [History] Selenium 100 mcg PO QAM 11/10/24 [History] Acetaminophen Tab [Tylenol] 650 mg PO Q4-6H PRN 11/11/24 [History] Aspirin 325 mg PO BID #60 tab 11/16/24 [Rx] HYDROcodone/APAP 7.5-325MG [Bouse 7.5-325] 1 - 2 tab PO Q6H PRN #32 tab 11/16/24 [Rx] Sennosides [Senokot] 2 tab PO DAILY PRN #60 tablet 11/16/24 [Rx] Follow up Appointment(s)/Referral(s): [facility] [[facility]STA[facility]] - 1-2 Days ([facility] will call you to schedule your in home physical therapy visits. ) Michael Whitten DO [Doctor of Osteopathic Medicine] - 2 Weeks Activity/Diet/Wound Care/Special Instructions: Weightbearing as tolerated with walker. Leave dressing intact. Dressing may be removed by home care nurse or by patient in 7 days. Then change dressing twice daily until follow up. May shower with initial dressing intact and after removal. If dressing become saturated, please remove. Please take aspirin 325mg twice daily for 30 days to prevent blood clots. Recommend use of compression stockings daily until follow up to help prevent swelling and blood clots. May remove at night before sleeping. Please follow-up with [facility] in 2 weeks and call with any questions or concerns, . Discharge Disposition: HOME WITH HOME HEALTH SERVICES
[2024-11-17] MEDS: ATORVASTATIN 40 MG TAB PO SCH (08:03)
[2024-11-17] MEDS: prednisoLONE ACETATE 1% OPHTH DROPS 5 ML BTL BOTH EYES SCH (08:03)
[2024-11-17] MEDS: LOSARTAN 50 MG TAB PO SCH (08:03)
[2024-11-17] MEDS: METOPROLOL TARTRATE 25 MG TAB PO SCH (08:03)
[2024-11-17] MEDS: LOSARTAN 25 MG TAB PO SCH (09:52)
[2024-11-17 11:19] LABS: Basophils % (A) 0 %; Eosinophils # (A) 0.1 k/uL (0-0.7); Eosinophils % (A) 0 %; HCT 37.5 % (34.0-46.0); HGB 11.9 gm/dL (11.4-16.0); Hypochromasia Slight; Lymphocytes # (A) 1.7 k/uL (1.0-4.8); Lymphocytes % (A) 12 %; MCH 29.5 pg (25.0-35.0); MCHC 31.8 g/dL (31.0-37.0); Mean Platelet Volume 7.8; Monocytes # (A) 1.2 k/uL (0-1.0); Monocytes % (A) 9 %; Neutrophils # (A) 10.3 k/uL (1.3-7.7); Neutrophils % (A) 77 %; Platelet Count 316 k/uL (150-450); RBC 4.03 m/uL (3.80-5.40); RDW 13.8 % (11.5-15.5); WBC 13.4 k/uL (3.8-10.6)
--- NOTE | 2024-11-17 14:16 | P.CONS ---
History of Present Illness - Reason for Consult Consult date: 11/17/24 - History of Present Illness History of present illness: This is a 79-year-old female with past medical history significant for TIA, asthma, hypertension, history of degenerative arthritis of right hip. Patient underwent right hip total arthroplasty with direct anterior approach by orthopedic. Medicine consulted for medical management. Patient denied any fever, chills, sore throat, productive cough, chest pain, palpitation, nausea vomiting diarrhea constipation abdominal pain dysuria urgency frequency weakness or numbness to extremities. Patient is afebrile, heart rate 79, respiratory rate 18, blood pressure 153/71, saturating 94% on room air. WBCs 13.4, hemoglobin 11.9, platelet 316. Assessment and plan: Status post right hip total arthroplasty: Management per orthopedic Pain control, DVT prophylaxis per orthopedic Hypertension: History of TIA Hyperlipidemia: Resume home meds losartan, metoprolol, aspirin. Statin. PHYSICAL EXAMINATION: GENERAL: The patient is A&O x3, NAD HEENT: EOMI, Sclerae anicteric, Moist Mucous membranes Neck: Supple, Non tender, No JVD PULMONARY: Equal breath souds B/L, No wheezing, No crackles. CARDIOVASCULAR: S1, S2 present. No murmurs, rubs, or gallops. ABDOMEN: Soft, nontender, nondistended, normoactive bowel sounds. No guarding or rebound tenderness. MUSCULOSKELETAL: No edema, No cyanosis. No clubbing. Normal ROM. Intact peripheral pulses. NEUROLOGICAL: CN 2-12 grossly intact. No FND REVIEW OF SYSTEMS: CONSTITUTIONAL: No fever, no malaise, no fatigue. HEENT: No recent visual problems or hearing problems. Denied any sore throat. CARDIOVASCULAR: No chest pain, orthopnea, PND, no palpitations, no syncope. PULMONARY: No shortness of breath, no cough, no hemoptysis. GASTROINTESTINAL: No diarrhea, no nausea, no vomiting, no abdominal pain. NEUROLOGICAL: No headaches, no weakness, no numbness. HEMATOLOGICAL: Denies any bleeding or petechiae. GENITOURINARY: Denies any burning micturition, frequency, or urgency. MUSCULOSKELETAL/RHEUMATOLOGICAL: Denies any joint pain, swelling, or any muscle pain. ENDOCRINE: Denies any polyuria or polydipsia. The rest of the 14-point review of systems is negative. Dictation was produced using [employer] software. please excuse any grammatical, word or spelling errors. Past Medical History Past Medical History: Asthma, CVA/TIA, Eye Disorder, Hypertension, Osteoarthritis (OA) Additional Past Medical History / Comment(s): TIA 03/20/2024. History of Any Multi-Drug Resistant Organisms: None Reported Past Surgical History: Section Additional Past Surgical History / Comment(s): Cornea transplants bilaterally Past Anesthesia/Blood Transfusion Reactions: No Reported Reaction Past Psychological History: No Psychological Hx Reported Smoking Status: Never smoker Past Alcohol Use History: None Reported Past Drug Use History: None Reported - Past Family History Father Family Medical History: No Reported History Mother Family Medical History: No Reported History Medications and Allergies Home Medications Medication Instructions Recorded Confirmed Type Budesonide/Formoterol Fumarate 2 puff INHALATION RT-BID 03/20/24 11/10/24 History [Symbicort 160-4.5 Mcg Inhaler] Cetirizine HCl [Zyrtec] 10 mg PO DAILY 03/20/24 11/10/24 History Cholecalciferol [Vitamin D3 (125 125 mcg PO DAILY 03/20/24 11/10/24 History Mcg = 5000 Iu)] Fluticasone Nasal [place] [Flonase 1 spray EA NOSTRIL BID 03/20/24 11/10/24 History Nasal [place]] Methylsulfonylmethane [MSM] 7,000 mg PO BID 03/20/24 11/10/24 History Montelukast [Singulair] 10 mg PO HS 03/20/24 11/16/24 History Prednisolone Acetate/Pf 1 drop BOTH EYES DAILY 03/20/24 11/10/24 History [Prednisolone Acet 1% Eye Drop] Systane Ultra Preservative Free 1 drop BOTH EYES QID PRN 03/20/24 11/16/24 History Zinc Gluconate [Zinc] 50 mg PO DAILY 03/20/24 11/10/24 History Aspirin 81 mg PO DAILY #30 tab 03/23/24 11/10/24 Rx Atorvastatin [Lipitor] 40 mg PO HS #30 tablet 03/23/24 11/16/24 Rx Ascorbic Acid [Vitamin C] 1,000 mg PO DAILY 11/10/24 11/10/24 History Calcium 26/Vit D3/Magnesium 15 1 cap PO QAM 11/10/24 11/10/24 History [Rgzhxwv-Yfs-Y1 Complx 167Mg Cp] Losartan [Cozaar] 25 mg PO DAILY 11/10/24 11/10/24 History Losartan [Cozaar] 50 mg PO QAM 11/10/24 11/10/24 History Melatonin 3 mg PO HS 11/10/24 11/16/24 History Melatonin/Magnesium Citrate 1 tab PO HS 11/10/24 11/16/24 History [Slowmag mg Calm-Sleep Tablet] Metoprolol Tartrate 25 mg PO QAM 11/10/24 11/10/24 History Selenium 100 mcg PO QAM 11/10/24 11/10/24 History Acetaminophen Tab [Tylenol] 650 mg PO Q4-6H PRN 11/11/24 11/16/24 History Aspirin 325 mg PO BID #60 tab 11/16/24 Rx HYDROcodone/APAP 7.5-325MG [[place] 1 - 2 tab PO Q6H PRN #32 tab 11/16/24 Rx 7.5-325] Sennosides [Senokot] 2 tab PO DAILY PRN #60 tablet 11/16/24 Rx Allergies Allergy/AdvReac Type Severity Reaction Status Date / Time adhesive tape Allergy Rash/Hives Verified 11/16/24 07:00 erythromycin base Allergy Rash/Hives Verified 11/16/24 07:00 nystatin Allergy Rash/Hives Verified 11/16/24 07:00 zolpidem [From Ambien] Allergy Rash/Hives Verified 11/16/24 07:00 Physical Exam Vitals: Vital Signs Temp Pulse Pulse Resp BP Pulse Ox 11/17/24 07:21 98.9 F 79 18 153/71 94 L 11/17/24 00:37 98.0 F 74 20 129/57 93 L 11/16/24 18:52 98.5 F 90 20 134/71 94 L 11/16/24 14:40 98.2 F 68 16 161/73 95 Intake and Output 11/16/24 11/17/24 11/17/24 22:59 06:59 14:59 Intake Total 240 Balance 240 Intake: Oral 240 Other: Voiding Method Toilet Toilet # Voids 6 Results CBC & Chem 7: 11/17/24 10:41 Labs: Abnormal Lab Results - Last 24 Hours (Table) 11/17/24 Range/Units 10:41 WBC 13.4 H (3.8-10.6) k/uL Neutrophils # 10.3 H (1.3-7.7) k/uL Monocytes # 1.2 H (0-1.0) k/uL
== END 2024-11-17 11:41 | disposition home health service (06) ==
LOC: OR 06:35 → 4SSUR 10:07 → OR 11-17 11:41
PROVIDERS: ATTEND Orthopaedic Surgery
DX: M16.11 Unilateral primary osteoarthritis, right hip (principal); G89.18 Other acute postprocedural pain; Z86.73 Personal history of transient ischemic attack (TIA), and cerebral infarction without residual deficits; I10 Essential (primary) hypertension; E78.5 Hyperlipidemia, unspecified; Z79.51 Long term (current) use of inhaled steroids; J45.909 Unspecified asthma, uncomplicated; Z79.82 Long term (current) use of aspirin; Z88.1 Allergy status to other antibiotic agents; Z88.8 Allergy status to other drugs, medicaments and biological substances
CPT/HCPCS: 97161; 97166; 64999; 85025; 73501; 27130; C1776; J2250; J1100; J0690 ×2; J2405; J3010; J2795

== ENCOUNTER → 2025-03-14 | Outpatient (CLI) | payer MEDICARE ==
[2025-03-14 16:42] LABS: Partial Thromboplastin Time 23.2 sec (22.0-30.0); Prothrombin Time 10.7 sec (10.0-12.5)
[2025-03-14 19:29] LABS: HCT 40.2 % (37.2-46.3); HGB 12.5 g/dL (12.0-15.0); MCHC 31.1 g/dL (32.0-37.0); MCV 89.9 FL (80.0-97.0); Mean Platelet Volume 10.1 FL (9.5-12.2); NRBC Per 100 WBC 0 X 10*3/uL (0.00-0.01); Platelet Count 323 X 10*3/uL (140-440); RBC 4.47 X 10*6/uL (4.10-5.20); RDW 14.9 % (11.5-14.5); WBC 8.37 X 10*3/uL (4.50-10.00)
[2025-03-14 19:30] LABS: ALT 21 U/L (8-44); AST 22 U/L (13-35); Albumin 4.3 g/dL (3.8-4.9); Albumin/Globulin Ratio 1.79 Ratio (1.60-3.17); Alkaline Phosphatase 102 U/L (41-126); BUN/Creat Ratio 25.14 Ratio (12.00-20.00); Blood Urea Nitrogen 17.6 mg/dL (9.0-27.0); Calcium 9.1 mg/dL (8.7-10.3); Carbon Dioxide 26.7 mmol/L (21.6-31.8); Chloride 103 mmol/L (96-109); Globulin 2.4 g/dL (1.6-3.3); Glucose 97 mg/dL (70-110); Potassium 4.3 mmol/L (3.5-5.5); Sodium 139 mmol/L (135-145); Total Bilirubin 0.4 mg/dL (0.3-1.2); Total Protein 6.7 g/dL (6.2-8.2)
== END | disposition home or self-care (01) ==
LOC: LABWHC1 15:28
PROVIDERS: ATTEND Orthopaedic Surgery
DX: Z01.812 Encounter for preprocedural laboratory examination (principal); M16.12 Unilateral primary osteoarthritis, left hip; Z22.322 Carrier or suspected carrier of Methicillin resistant Staphylococcus aureus
CPT/HCPCS: 80053; 85027; 85610; 85730; 86850; 86900; 86901; 87070

== ENCOUNTER 2025-03-22 07:12 | Day surgery (SDC) | payer MEDICARE ==
[2025-03-17 13:34] VITALS: BMI 32.4
[~2025-03-22 07:12] MED LIST changes: +HYDROmorphone 0.5 MG/0.5 ML SYRINGE IVP PRN
[2025-03-22] MEDS: GABAPENTIN 300 MG CAP PO PRN (07:39)
[2025-03-22] MEDS: ACETAMINOPHEN TAB 500 MG TAB PO PRN (07:40)
[2025-03-22] MEDS: MELOXICAM 7.5 MG TAB PO PRN (07:40)
[2025-03-22] MEDS: IV FLUID CONTINUATION 1,000 ML IV ONE (07:43)
[2025-03-22] MEDS: MIDAZOLAM 2 MG/2 ML VIAL IV PRN (08:05)
--- NOTE | 2025-03-22 08:16 | P.ANPRN ---
Procedure Note - Anesthesia - Nerve Block Performed Left Teddy Single Time Out Performed: Yes Date of Procedure: 03/22/25 Procedure Start Time: 08:05 Procedure Stop Time: 08:10 Location of Patient: PreOp Indication: Acute Post-Operative Pain, Analgesia, Requested by Surgeon Sedation Type: Sedate with meaningful contact maintained Preparation: Sterile Prep Position: Supine Catheter: None Needle Types: Pajunk Needle Gauge: 21 Ultrasound used to visualize needle placement: Yes Ultrasound used to observe medication spread: Yes Injectate: 0.5% Ropivacaine (see comment for volume) (Ropi 20ml+[id number]) Blood Aspirated: No Pain Paresthesia on Injection Noted: No Resistance on Injection: Normal Image Stored and Saved: Yes Events: Uneventful and Well Tolerated
[2025-03-22] MEDS: LACTATED RINGERS 1,000 ML IV SCH (08:17)
[2025-03-22] MEDS: ONDANSETRON 4 MG/2 ML VIAL IVP ONE (08:18)
[2025-03-22] MEDS: DEXAMETHASONE SOD PHOSPHATE 4 MG/ML 1 ML VIAL IV ONE (08:18)
[2025-03-22] MEDS ORDERED: ONDANSETRON 4 MG/2 ML VIAL IVP PRN (09:01)
[2025-03-22] MEDS ORDERED: HYDROmorphone 0.5 MG/0.5 ML SYRINGE IVP PRN ×3 (09:01)
[2025-03-22] MEDS ORDERED: NALOXONE 0.4 MG/ML 1 ML VIAL IV PRN (09:01)
[2025-03-22] MEDS ORDERED: MAGNESIUM HYDROXIDE 2,400 MG/30 ML CUP PO PRN (09:01)
[2025-03-22] MEDS ORDERED: HYDROcodone/APAP 7.5-325MG 1 EACH TAB PO PRN (09:03)
[2025-03-22] MEDS ORDERED: ROPIVACAINE 5 MG/ML 30 ML VIAL ONE (09:16)
[2025-03-22] MEDS ORDERED: DEXAMETHASONE SOD PHOSPHATE 4 MG/ML 1 ML VIAL ONE (09:16)
[2025-03-22] MEDS ORDERED: KETAMINE HCL IN 0.9 % NACL 50 MG/5 ML SYRINGE ONE (09:16)
[2025-03-22] MEDS ORDERED: PROPOFOL 10 MG/ML 20 ML VIAL IV ONE (09:16)
[2025-03-22] MEDS ORDERED: MIDAZOLAM 2 MG/2 ML VIAL ONE (09:16)
[2025-03-22] MEDS ORDERED: TRANEXAMIC 1,000 MG/100ML-NACL PREMIX BAG ONE (09:16)
[2025-03-22] MEDS: ceFAZolin 1,000 MG in SODIUM CHLORIDE 0.9% 1,000 ML IRRIGATION ONE (09:19)
[2025-03-22] MEDS: ROPIVACAINE 5 MG/ML 30 ML VIAL MISCELLANE ONE ×2 (09:45→10:22)
--- NOTE | 2025-03-22 10:28 | P.OP ---
Date of Procedure: 03/22/25 Preoperative Diagnosis: Severe osteoarthritis left hip Postoperative Diagnosis: Severe osteoarthritis left hip Procedure(s) Performed: Left total hip arthroplasty with a direct anterior approach Implants: [employer] Polarstem standard size 2 with a collar [employer] R3, 3 hole hemispherical acetabular shell, 50 mm [employer] Reflection 6.5 mm cancellus screw, 25 mm 2 [employer] R3, XLPE 20 acetabular liner [employer] Oxinium femoral head 36 mm, +0 All components were press-fit. The articulation is Oxinium on polyethylene. Anesthesia: spinal Surgeon: Michael Whitten Financial Compliance Manager #1: Mary Lima Estimated Blood Loss (ml): 800 Pathology: none sent Condition: stable Disposition: PACU Indications for Procedure: After failure of conservative treatment we discussed the surgical and nonsurgical treatment options at length. Patient wishes to proceed with a total hip arthroplasty with a direct anterior approach. Complications specific to this procedure were discussed at length, including but not limited to infection, leg length discrepancy, dislocation, nerve injury, and fracture. Covid-19 was also discussed at length with the patient, and they are aware of the current policies and procedures. The patient was given the option of delaying surgery, but they elect to proceed knowing these risks. Patient is aware of all these complications and informed consent was obtained Operative Findings: The operative findings are consistent with severe osteoarthritis of the left hip Description of Procedure: The patient was seen and evaluated in the preoperative area and the consent was reviewed. The operative site was marked with a skin marker. The patient verified the procedure and operative site. A YAN block was placed by anesthesia in the preoperative area. The patient was then brought to the operating room and given preoperative antibiotics intravenously. 1 g of Tranexamic acid was also given intravenously. A spinal anesthetic was administered by the anesthesia department. The patient was then placed on the [place] table with the bony prominences well-padded. The hip area was then prepped with a ChloraPrep solution and draped in the usual sterile fashion. A universal timeout was then performed, which confirmed the patient's name, surgical site, ALLERGIES, and procedure being performed on the consent. Next the incision site was located at 1 cm distal and 4 cm lateral to the anterior superior iliac spine. The skin and subcutaneous tissues were sharply incised. Incision was carefully dissected down to the fascia overlying the tensor fascia darrick muscle. This fascia was then incised in line with the muscle fibers. Care was taken to stay laterally in order to avoid injuring the lateral femoral cutaneous nerve. Next, using blunt finger dissection, the tensor fascia darrick muscle was dissected off its investing fascia. The muscle was then carefully retracted laterally with a cobra retractor over the lateral neck of the femur. Next, the circumflex vessels were identified and cauterized using the Aquamantis device. The anterior hip capsule was then exposed. The capsule was then opened and an inverted T fashion. The retractors were then placed intracapsularly. The retractors were maintained intracapsular throughout the procedure. The proximal femur was then visualized. Fluoroscopic x-rays were then taken in order to evaluate the preoperative leg lengths. A small amount of traction was placed on the leg. The femoral neck was then osteotomized at the appropriate level above the lesser trochanter. A small wedge of bone was then removed from the remaining femoral head. Next, using a corkscrew the femoral head was removed from the acetabulum. On gross visual inspection, the femoral head had complete loss of articular cartilage and multiple periarticular osteophytes. The femoral head was then measured. Attention was then turned to the acetabulum. The acetabulum was exposed and any remaining labrum was excised. Sequential reaming of the acetabulum was performed using fluoroscopic guidance until there was a good bed of bleeding cancellus bone. When the appropriate size was reached, a trial was then placed. The position and fit of the trial was checked with fluoroscopy. The trial was then removed. Then, using fluoroscopic guidance, the final implant was impacted at 20 of anteversion and 40 of abduction, and fully seated in the acetabulum. 2 screws were then placed in the acetabulum. Again fluoroscopy was used to check position of the screws. Next, the liner was then impacted, with a 20 elevated liner located in the anterior superior quadrant. Component locking was confirmed. Attention was then directed to the femur. With the aid of the [place] table, the femur was externally rotated to approximately 130, extended, and adducted under the opposite leg. A side hook was then placed under the proximal femur, and the side hook elevator was used to elevate the proximal femur while releasing the capsule. Retractors were then placed. A capsular release was performed, as well as a release of the conjoined tendon, which afforded excellent visualization of the proximal femur. Next, a box osteotome was used to lateralize the proximal femur. A soft metals hand engraver was then used to locate the femoral canal. Sequential broaching was then performed with appropriate size which afforded excellent fixation in the proximal femur. A trial was then placed with appropriate head and neck, and the hip was gently reduced with the aid of the [place] table. Fluoroscopy was then used to check position of the components, as well as to evaluate the leg lengths and offset. The leg lengths and offset were measured as closely as possible to ensure stability of the hip. The hip was then gently dislocated and the trials were then removed. Final implants were then impacted and the hip was again reduced. Final fluoroscopic x-rays confirmed that the components were in anatomic position. The leg lengths and offset were measured and were found to coincide with the trial measurements. The hip was also taken through range of motion, and found to be stable. The hip was then copiously irrigated with antibiotic solution with pulsatile lavage. The hip was then irrigated with Irrisept solution. The soft tissues were then injected with a ropivacaine solution. A second dose of 1 g of Tranexamic acid was also given intravenously. The fascia was then closed with 2-0 strata fix suture. The subcutaneous tissue was closed with 3-0 Vicryl. The subcuticular tissue was closed with 3-0 strata fix suture. The skin was then closed with Exofin skin glue. After the glue and dried, and Optifoam silver impregnated dressing was applied. The patient was then transferred to the recovery room in stable condition. The research study assistant SOMMER Thompson was required due to the complexity of surgery, and the need for skilled pastrycook's assistant for positioning, draping, exposure, retraction, and closure of the wound.
[2025-03-22] MEDS: LACTATED RINGERS 1,000 ML IV ONE (10:33)
--- NOTE | 2025-03-22 10:49 | XR ---
EXAMINATION TYPE: XR Hip Limited , AL guidance operating room Intraoperative/procedural fluoroscopi c services were provided. CLINICAL INDICATION:Female, 79 years old with history of LEFT ANTERIOR HIP; , [facility] FINDINGS: Fluoroscopic images demonstrating left hip arthroplasty. Hardware appears intact with appropriate ali gnment. Prior right hip arthroplasty demonstrated. No radiographic evidence for complication. Total fluoroscopy time is 21 seconds. DAP: 1.3480 Gycm2 Please see the operative/procedural note for further details. [facility], , 03/22/2025 10:46 AM
--- NOTE | 2025-03-22 12:47 | XR ---
EXAMINATION TYPE: XR Hip Limited LT DATE OF EXAM: 03/22/2025 12:43 PM INDICATION: Patient age:Female; 79 years old; Reason for study: Status post hip surgery, assess surgical alignment; PHH. pain COMPARISON: Left hip fluoroscopic images of the same date. TECHNIQUE: The left hip was examined in single frontal projection. FINDINGS: Post surgical changes from left hip arthroplasty. Hardware appears intact with appropriate alignment. There is expected surrounding soft tissue gas and edema. No acute fracture or dislocation. IMPRESSION: Post surgical changes from left hip arthroplasty. Hardware appears intact with appropriate alignment. [facility], , 03/22/2025 12:44 PM
[2025-03-22] MEDS: SODIUM CHLORIDE 0.9% 1,000 ML IV SCH (15:38)
[2025-03-22] MEDS: HYDROcodone/APAP 7.5-325MG 1 EACH TAB PO PRN (15:39)
[2025-03-22] MEDS ORDERED: ARTIFICIAL TEARS-HYPROMELLOSE DROPS 15 ML BTL BOTH EYES PRN (17:13)
[2025-03-22] MEDS: LOSARTAN 50 MG TAB PO SCH (17:44)
[2025-03-22] MEDS: prednisoLONE ACETATE 1% OPHTH DROPS 5 ML BTL BOTH EYES SCH (17:44)
[2025-03-22] MEDS: SYMBICORT 160-4.5 MCG INHALER INHALATION SCH (18:01)
[2025-03-22] MEDS ORDERED: CALCIUM CARBONATE 500 MG CHEWABLE PO PRN (20:11)
[2025-03-22 21:57] VITALS: RESP 17
[2025-03-22] MEDS: MONTELUKAST 10 MG TAB PO SCH (22:14)
[2025-03-22] MEDS: ATORVASTATIN 40 MG TAB PO SCH (22:14)
[2025-03-22] MEDS: SENNOSIDES-DOCUSATE SODIUM 1 EACH TAB PO SCH (22:14)
[2025-03-22] MEDS: MELATONIN 5 MG TABLET PO SCH (22:14)
[2025-03-22] MEDS: ASPIRIN 325 MG TAB PO SCH (22:14)
[2025-03-22] MEDS: FLUTICASONE NASAL 50MCG/SPRAY 16GM BTL EA NOSTRIL SCH (22:54)
[2025-03-23 07:44] VITALS: BP 150/52; PULSE 86; TEMP 98.1
[2025-03-23 08:16] LABS: Anion Gap 8.20 mmol/L (4.00-12.00); BUN/Creat Ratio 28.14 Ratio (12.00-20.00); Blood Urea Nitrogen 19.7 mg/dL (9.0-27.0); Calcium 8.3 mg/dL (8.7-10.3); Carbon Dioxide 24.8 mmol/L (21.6-31.8); Chloride 105 mmol/L (96-109); Glucose 129 mg/dL (70-110); Magnesium 1.8 mg/dL (1.5-2.4); Potassium 4.2 mmol/L (3.5-5.5); Sodium 138 mmol/L (135-145)
[2025-03-23 08:26] LABS: Basophils # (A) 0.01 X 10*3/uL (0.00-0.10); Basophils % (A) 0.1 %; Eosinophils # (A) 0 X 10*3/uL (0.04-0.35); Eosinophils % (A) 0 %; HCT 29.7 % (37.2-46.3); HGB 9.4 g/dL (12.0-15.0); Immature Grans, Automated 0.60 %; Lymphocytes # (A) 1.05 X 10*3/uL (0.90-5.00); Lymphocytes % (A) 9.3 %; MCH 28.5 pg (27.0-32.0); MCHC 31.6 g/dL (32.0-37.0); MCV 90.0 FL (80.0-97.0); Monocytes # (A) 1.17 X 10*3/uL (0.20-1.00); Monocytes % (A) 10.4 %; NRBC Per 100 WBC 0 X 10*3/uL (0.00-0.01); Neutrophils # (A) 8.93 X 10*3/uL (1.80-7.70); Neutrophils % (A) 79.6 %; Platelet Count 246 X 10*3/uL (140-440); RBC 3.30 X 10*6/uL (4.10-5.20); RDW 14.8 % (11.5-14.5); WBC 11.23 X 10*3/uL (4.50-10.00)
[2025-03-23] MEDS ORDERED: [UNRECOGNIZED DRUG - OTHER] PO SCH (09:00)
[2025-03-23] MEDS ORDERED: MAGNESIUM PO SCH (09:00)
[2025-03-23] MEDS ORDERED: CALCIUM PO SCH (09:00)
[2025-03-23] MEDS ORDERED: VIT D3 PO SCH (09:00)
[2025-03-23] MEDS: ASCORBIC ACID 500 MG TAB PO SCH (09:37)
[2025-03-23] MEDS: CHOLECALCIFEROL 125 MCG (5000 IU) TABLET PO SCH (09:37)
[2025-03-23] MEDS: LORATADINE 10 MG TAB PO SCH (09:37)
[2025-03-23] MEDS: METOPROLOL TARTRATE 25 MG TAB PO SCH (09:38)
[2025-03-23] MEDS: LOSARTAN 25 MG TAB PO SCH (09:39)
--- NOTE | 2025-03-23 10:57 | P.DS ---
Providers Expected date of discharge: 03/23/25 Attending physician: Michael Whitten Consults: 03/22/25 09:01 Consult Physician Routine Consulting Provider: Richard Lipscomb Consult Reason/Comments: medical management Do you want consulting provider notified?: Yes Primary care physician: Jessica Medley, DO - Discharge Diagnosis(es) (1) Osteoarthritis of left hip Current Visit: Yes Status: Acute (2) S/P total left hip arthroplasty Current Visit: Yes Status: Acute Hospital Course: This is a 79-year-old female with known history of degenerative arthritis of the left hip. The patient presented for evaluation as an outpatient. After discussion and consideration patient elects to proceed with total hip arthroplasty. The patient is seen preoperatively by Dr. Whitten and medically cleared for surgery by their primary care physician. Patient is admitted to [facility] on 03/22/2025 for total hip arthroplasty. The procedure is performed without complication or sequelae. The patient is doing well postoperatively. Labs and vital signs are stable on day of discharge. On day of discharge patient's hip incision is healing well. There is minimal erythema. There is no drainage noted at this time. There is minimal soft tissue swelling to the hip and thigh. Patient has full foot and ankle motion without difficulty or pain. Calf is soft and nontender to palpation. Neurovascular status to the left lower extremity is intact. Patient is discharged home in good condition. Please see med rec for accurate list of home medications. Plan - Discharge Summary Discharge Rx Participant: Yes New Discharge Prescriptions: New Aspirin 325 mg PO BID #60 tab HYDROcodone/APAP 7.5-325MG [[place] 7.5-325] 1 - 2 tab PO Q6H PRN #32 tab PRN Reason: Pain Sennosides [Senokot] 2 tab PO DAILY PRN #60 tablet PRN Reason: Constipation No Action Zinc Gluconate [Zinc] 50 mg PO DAILY Methylsulfonylmethane [MSM] 7,000 mg PO BID Cholecalciferol [Vitamin D3 (125 Mcg = 5000 Iu)] 125 mcg PO DAILY Prednisolone Acetate/Pf [Prednisolone Acet 1% Eye Drop] 1 drop BOTH EYES DAILY Montelukast [Singulair] 10 mg PO HS Systane Ultra Preservative Free 1 drop BOTH EYES QID PRN PRN Reason: dry eyes Aspirin 81 mg PO DAILY #30 tab Metoprolol Tartrate 25 mg PO QAM Ascorbic Acid [Vitamin C] 1,000 mg PO DAILY Acetaminophen Tab [Tylenol] 650 mg PO Q4-6H PRN PRN Reason: Pain Budesonide/Formoterol Fumarate [Breyna 160-4.5 Mcg Inhaler] 2 puff INHALATION BID Cetirizine HCl [Zyrtec] 10 mg PO DAILY Fluticasone Nasal [place] [Flonase Nasal [place]] 1 spray EA NOSTRIL BID Atorvastatin [Lipitor] 40 mg PO HS #30 tablet Losartan [Cozaar] 25 mg PO DAILY Selenium 100 mcg PO QAM Losartan [Cozaar] 50 mg PO QAM Calcium 26/Vit D3/Magnesium 15 [[id number]-R5 Complx 167Mg Cp] 1 cap PO QAM Sennosides [Senokot] 2 tab PO DAILY PRN #60 tablet PRN Reason: Constipation polyethylene glycoL 3350 [Polyethylene Glycol 3350] 17 gm PO DAILY PRN PRN Reason: Constipation Calm Magnesium Powder 2 tsp PO HS Discharge Medication List Cetirizine HCl [Zyrtec] 10 mg PO DAILY 03/20/24 [History] Cholecalciferol [Vitamin D3 (125 Mcg = 5000 Iu)] 125 mcg PO DAILY 03/20/24 [History] Fluticasone Nasal Ridge [Flonase Nasal [place]] 1 spray EA NOSTRIL BID 03/20/24 [History] Methylsulfonylmethane [MSM] 7,000 mg PO BID 03/20/24 [History] Montelukast [Singulair] 10 mg PO HS 03/20/24 [History] Prednisolone Acetate/Pf [Prednisolone Acet 1% Eye Drop] 1 drop BOTH EYES DAILY 03/20/24 [History] Systane Ultra Preservative Free 1 drop BOTH EYES QID PRN 03/20/24 [History] Zinc Gluconate [Zinc] 50 mg PO DAILY 03/20/24 [History] Aspirin 81 mg PO DAILY #30 tab 03/23/24 [Rx] Atorvastatin [Lipitor] 40 mg PO HS #30 tablet 03/23/24 [Rx] Ascorbic Acid [Vitamin C] 1,000 mg PO DAILY 11/10/24 [History] Calcium 26/Vit D3/Magnesium 15 [Uhitdor-Dlo-S2 Complx 167Mg Cp] 1 cap PO QAM 11/10/24 [History] Losartan [Cozaar] 25 mg PO DAILY 11/10/24 [History] Losartan [Cozaar] 50 mg PO QAM 11/10/24 [History] Metoprolol Tartrate 25 mg PO QAM 11/10/24 [History] Selenium 100 mcg PO QAM 11/10/24 [History] Acetaminophen Tab [Tylenol] 650 mg PO Q4-6H PRN 11/11/24 [History] Sennosides [Senokot] 2 tab PO DAILY PRN #60 tablet 11/16/24 [Rx] Budesonide/Formoterol Fumarate [Breyna 160-4.5 Mcg Inhaler] 2 puff INHALATION BID 03/17/25 [History] Calm Magnesium Powder 2 tsp PO HS 03/17/25 [History] polyethylene glycoL 3350 [Polyethylene Glycol 3350] 17 gm PO DAILY PRN 03/17/25 [History] Aspirin 325 mg PO BID #60 tab 03/22/25 [Rx] HYDROcodone/APAP 7.5-325MG [[place] 7.5-325] 1 - 2 tab PO Q6H PRN #32 tab 03/22/25 [Rx] Sennosides [Senokot] 2 tab PO DAILY PRN #60 tablet 03/22/25 [Rx] Follow up Appointment(s)/Referral(s): [facility] [[facility]] - 1-2 Days ([facility] will call you to schedule your in home physical therapy visits. ) Michael Whitten DO [Doctor of Osteopathic Medicine] - 04/06/25 1:45 pm Activity/Diet/Wound Care/Special Instructions: Weightbearing as tolerated with a walker. Leave dressing intact. Dressing may be removed by home care nurse or by patient in 7 days. Then change dressing twice daily until follow up. May shower with initial dressing intact and after removal. If dressing become saturated, please remove. Recommend use of compression stockings daily until follow up to help prevent swelling and blood clots. May remove at night before sleeping. Please take aspirin 325mg twice daily for 30 days to prevent blood clots. Please follow up with [facility] and call with any questions or concerns, . Discharge Disposition: HOME WITH HOME HEALTH SERVICES
== END 2025-03-23 11:43 | disposition home health service (06) ==
LOC: OR 07:12 → 4SSUR 10:49 → OR 03-23 11:43
PROVIDERS: ATTEND Orthopaedic Surgery
DX: M16.12 Unilateral primary osteoarthritis, left hip (principal); G89.18 Other acute postprocedural pain; I10 Essential (primary) hypertension; Z86.73 Personal history of transient ischemic attack (TIA), and cerebral infarction without residual deficits; Z79.82 Long term (current) use of aspirin; Z79.899 Other long term (current) drug therapy; Z88.1 Allergy status to other antibiotic agents; Z88.8 Allergy status to other drugs, medicaments and biological substances
CPT/HCPCS: 94640; 97161; 97166; 64473; 80048; 83735; 85025; 73501; 27130; C1776; J2250; J1100; J0690 ×3; J2405; J2795